=== PATIENT | male | born 1980 | race Caucasian/White ===

== ENCOUNTER → 2016-09-15 | Outpatient (CLI) | payer SELFPAY ==
[~2016-09-15] MED LIST: AMOXIL500 MG PO; DOXYCYCLINE MO100 MG PO; HYDROCODONE BIT1 T28 PO; KENALOG ORABASE MM; LASIX20 MG PO; NORVASC5 MG PO; PREDNICOT20 MG PO; PRILOSEC20 M1 PO; TENORMIN50 MG PO; TRAMADOL HCL50 MG PO; XANAX0.5 MG PO; ZANTAC 150150 MG PO; ZITHROMAX Z PA250 MG PO
== END | disposition home or self-care (01) ==
LOC: RAD 19:18
DX: M48.07 Spinal stenosis, lumbosacral region (principal); M54.32 Sciatica, left side; M79.605 Pain in left leg; M79.675 Pain in left toe(s)

== ENCOUNTER 2017-05-17 07:56 | Emergency (ER) | payer OTHER ==
[~2017-05-17] VITALS: Ht 180.3 cm; Wt 106.6 kg
[2017-05-17 08:30] LABS: BILIRUBIN NEGATIVE (NEGATIVE); BLOOD 3+ (NEGATIVE); CLARITY CLOUDY (CLEAR); COLOR YELLOW (YELLOW); GLUCOSE NEGATIVE (NEGATIVE); KETONE NEGATIVE (NEGATIVE); LEUKO ESTERASE 1+ (NEGATIVE); NITRITE POSITIVE (NEGATIVE); PH 5.5 (5.0-9.0); UROBILINOGEN 0.2 E.U./dl (0.2-1.0)
[2017-05-17 08:41] LABS: BASO # 0.1 10*3/uL (0.0-0.1); BASO % 0.4 % (0.0-1.0); EOS # 0.3 10*3/uL (0.0-0.4); EOS % 1.9 % (1.0-4.0); HEMATOCRIT 46.1 % (42.0-52.0); HEMOGLOBIN 15.7 g/dl (14.0-18.0); LYMPH % 19.9 % (27.0-41.0); MEAN CELL VOLUME 94.7 fl (80.0-94.0); MEAN CORPUSCULAR HGB 32.2 pg (27.0-31.0); MEAN CORPUSCULAR HGB CONC 34.1 g/dl (33.0-37.0); MEAN PLATELET VOLUME 10.2 fl (9.6-12.3); MONO # 0.9 10*3/uL (0.1-1.0); MONO % 5.6 % (3.0-9.0); NEUT # 10.8 10*3/uL (2.3-7.9); NEUT % 71.5 % (47.0-73.0); PLATELET COUNT AUTOMATED 156 10*3/uL (130-400); RED BLOOD COUNT 4.87 10*6/uL (4.50-5.90); RED CELL DISTRI WIDTH 12.5 % (0-14.5); WHITE BLOOD COUNT 15.1 10*3/uL (4.8-10.8)
[2017-05-17 08:44] LABS: RBC TNTC rbc/hpf (0-2)
[2017-05-17 08:58] LABS: ALBUMIN 3.6 gm/dl (3.1-4.5); ALKALINE PHOSPHATASE 87 U/L (45-117); BUN 11 mg/dl (7-24); CHLORIDE 105 mmol/L (98-107); CREATININE 0.85 mg/dL (0.70-1.30); POTASSIUM 4.2 mmol/L (3.5-5.1); SGOT/AST 20 IU/L (3-35); SGPT/ALT 36 U/L (12-78); SODIUM 138 mmol/L (136-145); TOTAL PROTEIN 7.4 gm/dL (6.4-8.2)
[2017-05-17] MEDS ORDERED: CIPRO500 MG PO (10:24)
== END 2017-05-17 11:35 | disposition home or self-care (01) ==
LOC: ED 07:56
PROVIDERS: Internal Medicine
DX: N39.0 Urinary tract infection, site not specified (principal); F17.200 Nicotine dependence, unspecified, uncomplicated; Z88.0 Allergy status to penicillin; Z88.8 Allergy status to other drugs, medicaments and biological substances; Z79.899 Other long term (current) drug therapy

== ENCOUNTER 2017-08-08 18:21 | Emergency (ER) | payer OTHER ==
[~2017-08-08] VITALS: Ht 180.3 cm; Wt 108.9 kg
[~2017-08-08 18:21] MED LIST changes: +CIPRO500 MG PO
[2017-08-08] MEDS ORDERED: MEDROL DOSEPAK4 MG PO (20:02)
[2017-08-08] MEDS ORDERED: ZITHROMAX250 MG PO (20:02)
== END 2017-08-08 20:04 | disposition home or self-care (01) ==
LOC: ED 18:21
DX: J40 Bronchitis, not specified as acute or chronic (principal); H66.91 Otitis media, unspecified, right ear; J45.909 Unspecified asthma, uncomplicated; F17.200 Nicotine dependence, unspecified, uncomplicated; Z88.0 Allergy status to penicillin; Z88.8 Allergy status to other drugs, medicaments and biological substances; Z79.899 Other long term (current) drug therapy

== ENCOUNTER 2017-09-23 04:43 | Emergency (ER) | payer OTHER ==
[~2017-09-23] VITALS: Ht 180.3 cm; Wt 111.1 kg
[~2017-09-23 04:43] MED LIST changes: +MEDROL DOSEPAK4 MG PO; +ZITHROMAX250 MG PO
== END 2017-09-23 06:56 | disposition home or self-care (01) ==
LOC: ED 04:43
DX: J40 Bronchitis, not specified as acute or chronic (principal); F17.200 Nicotine dependence, unspecified, uncomplicated; Z88.0 Allergy status to penicillin; Z88.8 Allergy status to other drugs, medicaments and biological substances; Z79.899 Other long term (current) drug therapy

== ENCOUNTER → 2025-03-11 | Outpatient (CLI) | payer OTHER ==
[~2025-03-11] MED LIST changes: +BUSPAR5 MG PO; +CLARITIN10 MG PO; +GABAPENTIN100 M2 PO; +KLONOPIN1 M1 PO; +ZOLOFT100 MG PO
== END | disposition home or self-care (01) ==
LOC: CARD 02-25 08:00
PROVIDERS: ATTEND Internal Medicine Cardiovascular Disease
DX: I20.89 Other forms of angina pectoris (principal)